=== PATIENT | male | born 1980 | race Caucasian/White ===

== ENCOUNTER 2016-06-13 07:48 | Outpatient (CLI) | payer OTHER ==
--- NOTE | 2016-06-13 09:16 | DIAGNOSTIC IMAGING REPORT ---
PROCEDURE: US ABDOMEN ULTRASOUND-COMPLETE INDICATION: PROTEIN ELECTROPHORESIS TECHNIQUE: Koch scale and color Doppler sonographic images of the abdomen were obtained. COMPARISON: None. FINDINGS: Liver, spleen and pancreas are normal. Normal gallbladder and CBD (3.6 mm). Aorta and IVC are patent. Normal hepatopetal flow. Normal kidneys. Right kidney measures 11.5 cm and left kidney 11.0 cm. IMPRESSION: 1. Normal abdominal ultrasound
== END 2016-06-13 23:00 | disposition home or self-care (01) ==
LOC: US SRH 07:48
DX: R77.9 Abnormality of plasma protein, unspecified (principal)